=== PATIENT | female | born 1945 | race African-American/Black ===

== ENCOUNTER 2017-10-31 15:01 | Emergency (ER) | payer OTHER ==
[2017-10-31 15:20] VITALS: BP 187/84; PULSE 85; TEMP 97.8; BMI 37.8
--- NOTE | 2017-10-31 16:00 | PDOC ---
History of Present Illness - General Chief Complaint: Blood Pressure Problem Stated Complaint: HIP PAIN/BLOOD PRESSURE PROBLEM Time Seen by Provider: 10/31/17 15:39 History Source: Patient - History of Present Illness Timing/Duration: other Associated Symptoms: denies: cough, fever/chills, headaches, malaise, nausea/ vomiting, shortness of breath, syncope, weakness Past History - Past Medical History Allergies/Adverse Reactions: Allergies Allergy/AdvReac Type Severity Reaction Status Date / Time Penicillins Allergy Verified 10/31/17 15:20 CVA: No COPD: No Thyroid Disease: Yes Other medical history: SPINAL STENOSIS - Suicide/Smoking/Psychosocial Hx Smoking History: Never smoked Hx Alcohol Use: No Drug/Substance Use Hx: No Substance Use Type: None Review of Systems - Review of Systems Constitutional: No: Chills, Fever HEENTM: No: Blurred Vision Respiratory: No: Shortness of Breath Cardiac (ROS): No: Chest Pain ABD/GI: No: Nausea, Vomiting Musculoskeletal: Yes: Back Pain. No: Muscle Weakness Neurological: No: Headache, Dizziness *Physical Exam - Vital Signs Last Vital Signs Temp Pulse Resp BP Pulse Ox 97.8 F 85 20 187/84 99 10/31/17 15:14 10/31/17 15:14 10/31/17 15:14 10/31/17 15:14 10/31/17 15:14 - Physical Exam General Appearance: Yes: Appropriately Dressed. No: Apparent Distress HEENT: positive: Normal Voice. negative: Scleral Icterus (R), Scleral Icterus ( L) Neck: positive: Supple Respiratory/Chest: positive: Lungs Clear, Normal Breath Sounds. negative: Respiratory Distress Cardiovascular: positive: Regular Rate, S1, S2 Gastrointestinal/Abdominal: positive: Soft Musculoskeletal: negative: CVA Tenderness, Vertebral Tenderness Integumentary: positive: Dry, Warm Neurologic: positive: Fully Oriented, Alert, Normal Mood/Affect, Motor Strength 5/5 ED Treatment Course - LABORATORY CBC & Chemistry Diagram: 10/31/17 16:41 10/31/17 16:41 Medical Decision Making - Medical Decision Making 10/31/17 15:50 72-year-old female, history of spinal stenosis, hypertension, not currently on meds as she took herself off BP meds 5 years ago because meds was making her "feel warm" per pt, here with concern that for the past several weeks, her blood pressure at home has been elevated, highest 160s over 100s. States she last saw her PMD 2 months ago who again commended that she start blood pressure medication, however pt currently refusing. No headache, dizziness, nausea, vomiting, focal weakness, chest pain or shortness of breath. Patient also complaining of lower back pain consistent with her spinal stenosis. Has had PT in the past. Denies lower extremity weakness, bladder or bowel incontinence or saddle anesthesia. Taking Aleve with some relief of symptoms See exam Asymptomatic elevated BP Currently refusing meds by her PMD Well andra w/ BP of 187/84, exam otherwise unremarkable -No indication for tx at this time -check labs for EOD -anticipate discharge w/ PMD f/u Chronic LBP H/o spinal stenosis, s/p PT No red flags at this time -pain control in ED 10/31/17 16:14 10/31/17 17:40 Labs unremarkable. Patient better with pain meds. Will discharge with strong recommendation to follow up with PMD on Thursday to discuss blood pressure management *DC/Admit/Observation/Transfer Diagnosis at time of Disposition: Elevated blood pressure reading Chronic back pain Qualifiers: Back pain location: low back pain Back pain laterality: unspecified Sciatica presence: without sciatica Qualified Code(s): M54.5 - Low back pain - Discharge Dispostion Disposition: HOME Condition at time of disposition: Improved - Referrals - Patient Instructions Printed Discharge Instructions: DI for High Blood Pressure Additional Instructions: At this point, it might be beneficial to start taking blood pressure medications. Please follow-up with your doctor on Thursday for further recommendations. Your blood pressure in ED was 187/84. Return to ER for worsening of symptoms. Regarding your back pain, continue to take Aleve as needed and follow-up with your PMD - Post Discharge Activity
[2017-10-31] MEDS ORDERED: IBUPROFEN 400 MG TABLET (FP) PO ONE ×3 (16:15→17:07)
--- NOTE | 2017-10-31 16:40 | PDOC ---
*Physical Exam - Vital Signs Last Vital Signs Temp Pulse Resp BP Pulse Ox 97.8 F 85 20 187/84 99 10/31/17 15:14 10/31/17 15:14 10/31/17 15:14 10/31/17 15:14 10/31/17 15:14 Medical Decision Making - Medical Decision Making 10/31/17 16:40 Pt seen by the Advanced Practice Provider under my direct supervision Ancillary studies reviewed I agree with plan as outlined by the Advanced Practice Provider NELIDA Morrison *DC/Admit/Observation/Transfer Diagnosis at time of Disposition: Elevated blood pressure reading Chronic back pain Qualifiers: Back pain location: low back pain Back pain laterality: unspecified Sciatica presence: without sciatica Qualified Code(s): M54.5 - Low back pain - Discharge Dispostion Condition at time of disposition: Improved - Referrals - Patient Instructions Printed Discharge Instructions: DI for High Blood Pressure Additional Instructions: At this point, it might be beneficial to start taking blood pressure medications. Please follow-up with your doctor on Thursday for further recommendations. Your blood pressure in ED was 187/84. Return to ER for worsening of symptoms. Regarding your back pain, continue to take Aleve as needed and follow-up with your PMD - Post Discharge Activity
[2017-10-31 16:53] LABS: BASO % 0.9 % (0-2.0); EOS % 1.6 % (0-4.5); HEMATOCRIT 41.2 % (32.4-45.2); HEMOGLOBIN 13.7 GM/dL (10.7-15.3); LYMPH % 40.9 % (8-40); MCHC 33.1 g/dl (32.0-36.0); MEAN CELL VOLUME 93.7 fl (80-96); MEAN PLT VOLUME 8.1 fl (7.5-11.1); MONO % 6.6 % (3.8-10.2); PLATELET COUNT 236 K/MM3 (134-434); RDW 12.9 % (11.6-15.6); WHITE BLOOD COUNT 6.2 K/mm3 (4.0-10.0)
[2017-10-31 17:08] LABS: URINE APPEARANCE CLEAR; URINE BILIRUBIN NEGATIVE (NEGATIVE); URINE BLOOD NEGATIVE (NEGATIVE); URINE COLOR STRAW; URINE GLUCOSE (UA) NEGATIVE (NEGATIVE); URINE KETONE NEGATIVE (NEGATIVE); URINE LEUK ESTERASE TRACE (NEGATIVE); URINE NITRITE NEGATIVE (NEGATIVE); URINE PROTEIN NEGATIVE (NEGATIVE); URINE UROBILINOGEN NEGATIVE mg/dL (0.2-1.0)
[2017-10-31 17:11] LABS: EPI CELLS RARE /HPF (FEW); URINE MUCUS RARE
[2017-10-31 17:19] LABS: ALBUMIN 4.1 g/dl (3.4-5.0); ANION GAP 7 (8-16); BILIRUBIN,TOTAL 0.5 mg/dL (0.2-1.0); BLOOD UREA NITROGEN 14 mg/dL (7-18); CALCIUM 10.6 mg/dL (8.5-10.1); CHLORIDE 103 mmol/L (98-107); CO2 31 mmol/L (21-32); CREATININE 0.8 mg/dL (0.55-1.02); GLUCOSE,RANDOM 76 mg/dL (74-106); POTASSIUM 3.8 mmol/L (3.5-5.1); SGOT/AST 26 U/L (15-37); SGPT/ALT 29 U/L (12-78); SODIUM 141 mmol/L (136-145); TOT PROT 7.4 g/dl (6.4-8.2)
[2017-10-31 17:20] LABS: ALK PHOS 135 U/L (45-117)
== END 2017-10-31 18:03 | disposition home or self-care (01) ==
LOC: JER 15:01
DX: I10 Essential (primary) hypertension (principal); G89.29 Other chronic pain
CPT/HCPCS: 36415; 80053; 81003; 81015; 85025; 99282-25